=== PATIENT | male | born 1995 | race Caucasian/White ===

== ENCOUNTER 2017-02-17 11:06 | Emergency (ER) | payer OTHER ==
[~2017-02-17] VITALS: Ht 175.3 cm; Wt 100.0 kg
[2017-02-17] MEDS ORDERED: IBUPROFEN 600 MG TAB PO ONE (11:30)
[2017-02-17] MEDS ORDERED: IBUP-1022 PO (11:58)
[2017-02-17 12:17] VITALS: BP 132/76
--- NOTE | 2017-02-17 13:44 | REP ---
REASON: Pain after trauma. PRIORS: None. FINDINGS: The compartments are symmetric and relatively well maintained. There is no acute fracture or destructive osseous lesion. Signed by Colin Waldron DO 02/17/2017 03:13 P
== END 2017-02-17 12:19 | disposition home or self-care (01) ==
LOC: M ED 11:06
DX: S80.01XA Contusion of right knee, initial encounter (principal); W18.30XA Fall on same level, unspecified, initial encounter; Y92.410 Unspecified street and highway as the place of occurrence of the external cause; Y99.9 Unspecified external cause status; Y93.9 Activity, unspecified

== ENCOUNTER 2018-06-02 15:01 | Emergency (ER) | payer OTHER | END 2018-06-02 16:55 | disposition home or self-care (01) | LOC: M ED 15:01 | DX: M54.5 Low back pain (principal) | CPT/HCPCS: 72110 ==